=== PATIENT | male | born 1985 | race Hispanic/Latino ===

== ENCOUNTER 2020-01-08 | Emergency (ER) | payer SELFPAY ==
[2020-01-08] MEDS ORDERED: BENADRY2 EX (03:46)
[2020-01-08] MEDS ORDERED: BENADRYL 50MG C50 MG PO (03:46)
== END 2020-01-08 04:30 | disposition home or self-care (01) | DRG 607 ==
DX: S40.862A Insect bite (nonvenomous) of left upper arm, initial encounter (principal); W57.XXXA Bitten or stung by nonvenomous insect and other nonvenomous arthropods, initial encounter